=== PATIENT | male | born 1940 | race Caucasian/White ===

== ENCOUNTER 2022-03-09 12:51 | Emergency (ER) | payer OTHER ==
[~2022-03-09] VITALS: Ht 167.6 cm; Wt 81.6 kg
[~2022-03-09 12:51] MED LIST: ASPIRIN81 M1; ENALAPRIL; FELODIPINE; HYDROCHLOROTHIA25 MG PO; MULTIPLE VITAMI1 CAP PO; TOPROL XL100 MG PO; VITAMIN D1000 IU; VYTORIN 10 MG-41 TA2 PO
[2022-03-09] MEDS ORDERED: ENALAPRIL20 MG PO (13:27)
[2022-03-09] MEDS ORDERED: FELODIPINE2.5 MG PO (13:28)
[2022-03-09] MEDS ORDERED: HYDROCHLOROTHIA25 M1 PO (13:28)
[2022-03-09] MEDS ORDERED: ROSUVASTATIN CA10 MG PO (13:28)
[2022-03-09] MEDS ORDERED: METOPROLOL SUC100 M1 PO (13:28)
[2022-03-09 14:12] LABS: BASO % 0.1 % (0.0-1.0); HEMATOCRIT 41.1 % (42.0-52.0); LYMPH # 0.2 10*3/uL (1.3-4.4); LYMPH % 1.9 % (27.0-41.0); MEAN CELL VOLUME 91.9 fl (80.0-94.0); MEAN CORPUSCULAR HGB 31.5 pg (27.0-31.0); MEAN CORPUSCULAR HGB CONC 34.3 g/dl (33.0-37.0); MEAN PLATELET VOLUME 9.8 fl (9.6-12.3); MONO # 0.7 10*3/uL (0.1-1.0); MONO % 7.8 % (3.0-9.0); NEUT # 8.2 10*3/uL (2.3-7.9); NEUT % 89.9 % (47.0-73.0); PLATELET COUNT AUTOMATED 136 10*3/uL (130-400); RED BLOOD COUNT 4.47 10*6/uL (4.50-5.90); RED CELL DISTRI WIDTH 13.2 % (0-14.5); WHITE BLOOD COUNT 9.1 10*3/uL (4.8-10.8)
[2022-03-09 14:24] LABS: ALKALINE PHOSPHATASE 57 U/L (45-117); BUN 24 mg/dl (7-24); CHLORIDE 100 mmol/L (98-107); POTASSIUM 3.3 mmol/L (3.5-5.1); SGOT/AST 20 IU/L (3-35); SGPT/ALT 18 U/L (12-78); SODIUM 135 mmol/L (136-145)
[2022-03-09 14:37] LABS: BILIRUBIN Negative (Negative); BLOOD 2+ (Negative); CLARITY Clear (Clear); COLOR Yellow (Yellow); GLUCOSE Negative (Negative); KETONE 1+ (Negative); LEUKO ESTERASE 1+ (Negative); NITRITE Negative (Negative)
[2022-03-09] MEDS ORDERED: ASPIRIN ADULT L81 M2 PO (14:42)
[2022-03-09 14:43] LABS: BACTERIA 2+; MUCOUS 2+
[2022-03-09 14:44] LABS: HYALINE CAST 0-2
[2022-03-09] MEDS ORDERED: CEPHALEXIN500 M1 PO (15:07)
== END 2022-03-09 15:14 | disposition home or self-care (01) ==
LOC: ED 12:51
PROVIDERS: Nurse Practitioner Family
DX: K04.7 Periapical abscess without sinus (principal); Z20.822 Contact with and (suspected) exposure to COVID-19; N39.0 Urinary tract infection, site not specified; E87.6 Hypokalemia; Z79.899 Other long term (current) drug therapy; Z79.82 Long term (current) use of aspirin; Z91.041 Radiographic dye allergy status; Z88.1 Allergy status to other antibiotic agents